=== PATIENT | female | born 1970 | race Caucasian/White ===

== ENCOUNTER → 2017-03-04 | Outpatient (CLI) | payer BC ==
--- NOTE | 2017-03-04 16:01 | RAD ---
DATE: 03/04/2017 EXAM: DIGITAL DIAGNOSTIC BILATERAL, BREAST LEFT HISTORY: New palpable lump in the left breast. Diagnostic mammogram. COMPARISON: 01/31/2016, 11/01/2014, 07/18/2013 mammograms This study was interpreted with the benefit of Computerized Aided Detection (CAD). The breast parenchyma is heterogeneously dense, which could reduce sensitivity of mammography. Breast parenchyma level C. FINDINGS: CC and MLO views of each breast were performed. Spot magnification right CC and ML views were performed. Spot compression views of the left cc and MLO views were performed. Targeted ultrasound of palpable abnormality in the left breast in the superior breast at approximately 11 o'clock. Right breast: Spot magnification views were performed for micron calcifications in the superior right breast along the posterior nipple line on CC view is, at posterior depth. These calcifications appear round and punctate, benign. No additional microcalcifications, areas of architectural distortion or suspicious masses are identified. Left breast: Spot compression views of the left breast were performed in the area of palpable abnormality. No mammographic mass is noted. No suspicious microcalcifications or areas of architectural distortion. Sonographic evaluation was performed due to the palpable abnormality. Upon sonographic evaluation in the region of palpable abnormality at 11:00 position, there is a bilobed hypoechoic lesion with through enhancement. There are areas of increased echogenicity along the inferior margins, some of which are immobile. No internal flow is identified. Findings are suggestive of a complicated cyst or possibly a complex cyst. Aspiration of cyst contents is recommended with possible biopsy if there is residual wall thickening. IMPRESSION: 1. Left breast: Suspicious abnormality. Patient will need to return for aspiration of left breast complicated cyst versus complex cyst. Biopsy may be performed if cyst does not completely collapse. 2. Negative right mammogram. BI-RADS CATEGORY: 4 SUSPICIOUS ABNORMALITY- BIOPSY SHOULD BE CONSIDERED RECOMMENDED FOLLOW-UP: BIO BIOPSY RECOMMENDED PQRS compliance statement: Mammography is a sensitive method for finding small breast cancers, but it does not detect them all and is not a substitute for careful clinical examination. A negative mammogram does not negate a clinically suspicious finding and should not result in delay in biopsying a clinically suspicious abnormality. "Our facility is accredited by the [employer] Mammography Program."
== END | disposition home or self-care (01) ==
LOC: MAMMO 08:34
PROVIDERS: ATTEND Nurse Practitioner
DX: N63 Unspecified lump in breast (principal)
CPT/HCPCS: 76641; G0204; 77066